=== PATIENT | male | born 1995 | race Hispanic/Latino ===

== ENCOUNTER 2023-04-24 04:20 | Emergency (ER) | payer BC ==
[~2023-04-24] VITALS: Ht 190.5 cm; Wt 110.3 kg
[2023-04-24] MEDS ORDERED: PENICILLIN V POTASSIUM 500 MG TABLET PO STA (04:52)
[2023-04-24] MEDS ORDERED: HYDROCODONE/ACETAMINOPHEN 10/325 MG TAB PO ONE (05:00)
[2023-04-24] MEDS ORDERED: PENI500T2 PO (05:08)
[2023-04-24] MEDS ORDERED: HYDR-4060 PO (05:08)
[2023-04-24 05:15] VITALS: BP 138/87
== END 2023-04-24 05:17 | disposition home or self-care (01) ==
LOC: EDH 04:20
DX: K08.89 Other specified disorders of teeth and supporting structures (principal); E11.9 Type 2 diabetes mellitus without complications

== ENCOUNTER 2024-01-09 12:27 | Emergency (ER) | payer BC, OTHER ==
[~2024-01-09] VITALS: Ht 190.5 cm; Wt 113.4 kg
[~2024-01-09 12:27] MED LIST: HYDR-4060 PO; PENI500T2 PO
[2024-01-09] MEDS ORDERED: ACET-2079 PO (18:26)
[2024-01-09] MEDS ORDERED: CYCL5TAB PO (18:26)
[2024-01-09] MEDS ORDERED: NAPR-1023 PO (18:26)
[2024-01-09] MEDS: KETOROLAC 30MG VIAL (30MG/ML) IM ONE (19:25)
[2024-01-09 19:26] VITALS: BP 141/70; PULSE 76; RESP 17; O2SAT 98
== END 2024-01-09 19:38 | disposition home or self-care (01) ==
LOC: EDH 12:27
DX: S86.812A Strain of other muscle(s) and tendon(s) at lower leg level, left leg, initial encounter (principal); H57.12 Ocular pain, left eye; E11.9 Type 2 diabetes mellitus without complications; Z79.899 Other long term (current) drug therapy; X58.XXXA Exposure to other specified factors, initial encounter; Y93.89 Activity, other specified; Y92.89 Other specified places as the place of occurrence of the external cause; Y99.8 Other external cause status
CPT/HCPCS: 99284; 96372; J1885